=== PATIENT | female | born 1980 | race Caucasian/White ===

== ENCOUNTER 2020-06-21 16:14 | Emergency (ER) | payer BC ==
[~2020-06-21 16:14] MED LIST: BENTYL 20MG TAB20 MG PO; HUMALOG100 UNIT/1 SC; LANTUS100 UNIT/1 SC; METFORMIN HCL1000 MG PO; NAPROSYN500 MG PO; NORCO 5-325 TA1 EACH PO; NORCO 7.5-3251 EACH PO; PHENERGAN 25 MG25 M1 PO; PRENATAL VITAM1 EAC3 PO; PROTONIX20 MG PO
[2020-06-22] MEDS ORDERED: TORADOL 10 MG T10 MG PO (08:25)
== END 2020-06-21 18:45 | disposition left against medical advice (07) ==
LOC: ER1 16:14
DX: Z53.21 Procedure and treatment not carried out due to patient leaving prior to being seen by health care provider (principal)

== ENCOUNTER 2020-06-22 06:11 | Emergency (ER) | payer BC, OTHER ==
[2020-06-22 07:00] LABS: HEMOGLOBIN 14.3 gm/dl (12.3-15.3); RED BLOOD COUNT 4.68 M/UL (4.00-5.10); WHITE BLOOD COUNT 7.1 K/UL (4.5-11.0)
[2020-06-22 07:24] LABS: BUN/CREATININE RATIO 18 (0-10)
[2020-06-22] MEDS ORDERED: TORADOL 10 MG T10 MG PO (08:25)
== END 2020-06-22 08:58 | disposition home or self-care (01) ==
LOC: ER1 06:11
PROVIDERS: Family Medicine
DX: M54.5 Low back pain (principal); R11.0 Nausea; E11.9 Type 2 diabetes mellitus without complications; I10 Essential (primary) hypertension; Z79.899 Other long term (current) drug therapy
CPT/HCPCS: 80053; 81001; 85025; 96374; 96375; 99284; J1885; J2405

== ENCOUNTER → 2020-07-27 | Outpatient (CLI) | payer BC, OTHER ==
[~2020-07-27] MED LIST changes: +TORADOL 10 MG T10 MG PO
== END ==
LOC: KOH-I 13:09
DX: M25.551 Pain in right hip (principal); M54.5 Low back pain; M47.816 Spondylosis without myelopathy or radiculopathy, lumbar region
CPT/HCPCS: 72100; 73502

== ENCOUNTER 2020-11-09 23:40 | Emergency (ER) | payer BC ==
[2020-11-10 02:09] LABS: HEMOGLOBIN 13.5 gm/dl (12.3-15.3); RED BLOOD COUNT 4.37 M/UL (4.00-5.10); WHITE BLOOD COUNT 8.8 K/UL (4.5-11.0)
[2020-11-10 02:33] LABS: BUN/CREATININE RATIO 15 (0-10)
== END 2020-11-10 08:03 | disposition home or self-care (01) ==
LOC: ER1 23:40
PROVIDERS: Physician Assistant
DX: R07.9 Chest pain, unspecified (principal); E11.9 Type 2 diabetes mellitus without complications; I10 Essential (primary) hypertension; E78.5 Hyperlipidemia, unspecified
CPT/HCPCS: 71045; 80053; 82550; 82553; 83690; 83874; 84484; 85025; 93005; 99285

== ENCOUNTER 2021-02-26 12:51 | Emergency (ER) | payer BC, OTHER ==
[2021-02-26] MEDS ORDERED: MEDROL4 MG PO (17:02)
[2021-02-26] MEDS ORDERED: VALIUM2 MG PO (17:02)
== END 2021-02-26 17:22 | disposition home or self-care (01) ==
LOC: ER1 12:51
DX: M54.50 Low back pain, unspecified (principal); G89.29 Other chronic pain; F17.210 Nicotine dependence, cigarettes, uncomplicated
CPT/HCPCS: 72131; 81001; 84703; 87086; 96372; 99284; J1885; J3360

== ENCOUNTER → 2021-03-04 | Outpatient (CLI) | payer BC ==
[~2021-03-04] MED LIST changes: +MEDROL4 MG PO; +VALIUM2 MG PO
== END ==
LOC: KOH-I 15:22
DX: M51.26 Other intervertebral disc displacement, lumbar region (principal); M48.061 Spinal stenosis, lumbar region without neurogenic claudication; M47.816 Spondylosis without myelopathy or radiculopathy, lumbar region; M51.27 Other intervertebral disc displacement, lumbosacral region; M51.86 Other intervertebral disc disorders, lumbar region; M51.87 Other intervertebral disc disorders, lumbosacral region
CPT/HCPCS: 72148